=== PATIENT | male | born 1970 | race African-American/Black ===

== ENCOUNTER 2017-05-14 02:35 | Emergency (ER) | payer SELFPAY ==
[~2017-05-14] VITALS: Ht 190.5 cm; Wt 99.8 kg
[~2017-05-14 02:35] MED LIST: CLON-276 PO; KETO75CA PO; LISI-334 PO; MELO15TA23 PO; METO50TA10 PO; NAPR220C4 PO; TRAM50TA PO; tylenol arthritis
--- NOTE | 2017-05-14 02:44 | PHYS DOC ---
Past History Past Medical History: Arthritis, Hypertension, Sinusitis Additional Past Medical Histor: stopped BP meds a while ago Past Surgical History: No Surgical History Smoking: Cigarettes Alcohol Use: None Drug Use: None Social History Narrative: Recently incarcerated; living in [facility] ( [facility]) Adult General HPI HPI Patient is a 46 year old male who presents with fall. He resides at a half [place] house and was getting up to go to the bathroom. He can't remember if he tripped "or passed out but i fell forward and hit my face." He remembers falling. He knocked out his front tooth and can't close his jaw. He has a headache now (not prior) and mouth and jaw pain. No neck pain. No recent illness. No chest pain prior to event. Unknown last tetanus HE DOES NOT HAVE THE MISSING TOOTH WITH HIM Review of Systems Review of Systems Constitutional: Denies fever or chills Eyes: Denies change in visual acuity, redness, or eye pain HENT: Denies nasal congestion or sore throat; oral trauma tonight. Respiratory: Denies cough or shortness of breath Cardiovascular: No chest pain or palpitations GI: Denies abdominal pain, nausea, vomiting, bloody stools or diarrhea : Denies dysuria or hematuria Musculoskeletal: Denies back pain or joint pain Integument: Denies rash or skin lesions Neurologic: headache after fall, No focal weakness or sensory changes Allergies Allergies Allergies Coded Allergies Type Severity Reaction Last Updated Verified No Known Drug Allergies 03/19/16 No Physical Exam Physical Exam Constitutional: Well developed, well nourished, no acute distress, non-toxic appearance. HENT: Normocephalic, atraumatic, TM clear bilaterally; bilateral external ears normal, oropharynx moist, no oral exudates, nose normal. Oral lacerations to inner lower lip. Upper dental trauma with missing incisor (#8) and loosening and chip of #9. Malocclusion of jaw. Eyes: PERRLA, EOMI, conjunctiva normal, no discharge. Neck: Normal range of motion, no tenderness, supple, no stridor. Cardiovascular:Heart rate regular rhythm, no murmur Lungs & Thorax: Bilateral breath sounds clear to auscultation Abdomen: Bowel sounds normal, soft, no tenderness, no masses, no pulsatile masses. Skin: Warm, dry, no erythema, no rash. Back: No tenderness, no CVA tenderness. Extremities: No tenderness, no cyanosis, no clubbing, ROM intact, no edema. Neurologic: Alert and oriented X 3, normal motor function, normal sensory function, no focal deficits noted. Psychologic: Affect normal, judgement normal, mood normal. Current Patient Data Vital Signs Vital Signs Date Time Temp Pulse Resp B/P (MAP) Pulse Ox O2 Delivery O2 Flow Rate FiO2 05/14/17 02:45 97.4 73 20 98 Room Air 0400 am: BP 142/77, P 89, sat 96% RA Lab Results Laboratory Tests Test 05/14/17 03:10 White Blood Count 7.0 x10^3/uL Red Blood Count 4.99 x10^6/uL Hemoglobin 15.1 g/dL Hematocrit 45.0 % Mean Corpuscular Volume 90 fL Mean Corpuscular Hemoglobin 30 pg Mean Corpuscular Hemoglobin Concent 34 g/dL Red Cell Distribution Width 14.3 % Platelet Count 234 x10^3/uL Neutrophils (%) (Auto) 59 % Lymphocytes (%) (Auto) 30 % Monocytes (%) (Auto) 11 % Eosinophils (%) (Auto) 1 % Basophils (%) (Auto) 1 % Neutrophils # (Auto) 4.1 x10^3uL Lymphocytes # (Auto) 2.1 x10^3/uL Monocytes # (Auto) 0.7 x10^3/uL Eosinophils # (Auto) 0.0 x10^3/uL Basophils # (Auto) 0.0 x10^3/uL Prothrombin Time 11.8 SEC Prothromb Time International Ratio 1.2 Activated Partial Thromboplast Time 22 SEC Sodium Level 141 mmol/L Potassium Level 3.8 mmol/L Chloride Level 103 mmol/L Carbon Dioxide Level 28 mmol/L Anion Gap 10 Blood Urea Nitrogen 9 mg/dL Creatinine 1.8 mg/dL Estimated GFR (Cockcroft-Gault) 49.8 BUN/Creatinine Ratio 5 Glucose Level 142 mg/dL Calcium Level 8.9 mg/dL Total Bilirubin 0.7 mg/dL Aspartate Amino Transf (AST/SGOT) 32 U/L Alanine Aminotransferase (ALT/SGPT) 33 U/L Alkaline Phosphatase 77 U/L Total Protein 7.7 g/dL Albumin 4.1 g/dL Albumin/Globulin Ratio 1.1 Ethyl Alcohol Level < 10 mg/dL Current Medications Medications (Trade) Dose Ordered Sig/Cj Route PRN Reason Start Time Stop Time Status Last Admin Dose Admin Fentanyl Citrate (Fentanyl 2ml Vial) 25 mcg PRN Q15MIN PRN IV PAIN GREATER THAN 3/10 05/14/17 03:00 05/15/17 02:59 Sodium Chloride 1,000 ml @ 1,000 mls/hr Q1H IV 05/14/17 03:30 05/14/17 04:29 05/14/17 03:26 Ondansetron HCl (Zofran) 4 mg 1X ONCE IV 05/14/17 03:30 05/14/17 03:31 DC 05/14/17 03:26 Cefazolin Sodium 1 gm/Sodium Chloride 50 ml @ 100 mls/hr 1X ONCE IV 05/14/17 03:30 05/14/17 03:59 05/14/17 03:26 Sodium Chloride 50 ml @ As Directed STK-MED ONCE .ROUTE 05/14/17 03:21 05/14/17 03:22 DC Cefazolin Sodium (Ancef) 1 gm STK-MED ONCE .ROUTE 05/14/17 03:22 05/14/17 03:23 DC EKG EKG EKG by my interpretation. Normal sinus rhythm, rate 72. Non specific ST changes with J point elevation (consistent with age). No STEMI. Radiology/Procedures Radiology/[place] [address] IMAGING REPORT Signed PATIENT: ROBERT ODEN ACCOUNT: [id number] : 1970 LOCATION: ER AGE: 46 SEX: M EXAM STATUS: PRE ER ORD. PHYSICIAN: DOC JANSEN MD REASON: fell; facial pain PROCEDURE: CT HEAD AND CERVICAL SPINE WO PQRS Compliance Statement: One or more of the following individualized dose reduction techniques were utilized for this examination: 1. Automated exposure control 2. Adjustment of the mA and/or kV according to patient size 3. Use of iterative reconstruction technique CT HEAD, MAXILLOFACIAL, AND CERVICAL SPINE WITHOUT CONTRAST History: [id number] Injury from fall tonight, headache, facial abrasions, hit mouth and loss/chipped teeth, neck pain. Comparison: CT head without contrast, March 28, 2016. Procedure: Axial images are obtained of the head from the skull base through the vertex without IV contrast. Noncontrast helical CT of the cervical spine was performed. Axial, sagittal, and coronal reconstructions were obtained. Helical CT imaging of the facial bones is performed without IV contrast. Findings: The ventricles and sulci are normal for the patient's age. No mass-effect, midline shift, hemorrhage or obvious acute infarction is identified. Basilar cisterns are patent. Bone windows demonstrate no significant calvarial abnormality. There is acute traumatic nondisplaced fracture of the right mandible just right of midline, parasymphyseal. There is acute traumatic mildly comminuted fracture of the left mandibular condyle, sagittal image 15. Normal TMJ articulation. Right mandibular condyle is intact. The visualized paranasal sinuses are clear. Mastoid air cells are well aerated. There is no evidence of acute fracture or acute malalignment of the cervical spine. There is disc space narrowing and degenerative endplate spurring of C3/C4. There is posterior disc osteophyte complex but without significant central canal stenosis. Facet joints are intact. Visualized soft tissues of the neck demonstrate no significant abnormalities. The visualized lung apices are clear. Biapical paraseptal emphysema. IMPRESSION: 1. No acute intracranial abnormality. 2. No acute fracture of the cervical spine. 3. Acute traumatic fracture of the right para symphyseal mandible and mildly comminuted acute traumatic fracture of the left mandibular condyle. Electronically signed by: Young Jefferson MD (05/14/2017 3:30 AM) [facility] DICTATED AND SIGNED BY: YOUNG JEFFERSON MD DATE: 05/14/17321 Course & Med Decision Making Course & Med Decision Making Pertinent Labs and Imaging studies reviewed. (See chart for details) Evaluated patient upon arrival. He has obvious facial trauma/dental trauma. Concerned about mandible fracture. Tdap dosed and Ancef IV. CT ordered. Lab and EKG ordered as patient unclear if he "passed out" although his history relates that he fell. 0315 AM: Back from CT (awaiting results). EKG done. 0345 AM: CT results back with findings of mandibular fracture. Patient is open and needs admission. Will require transfer for higher level of care. 0400 AM: wounds repaired. [facility] contacted 0410 AM: Dr Mauricio accepted patient. Patient handling airway but requires frequent suctioning of secretions (patient is able to handle that on his own with suction). CT scans uploaded to cloud. Dragon Disclaimer Dragon Disclaimer This chart was dictated in whole or in part using Voice Recognition software in a busy, high-work load, and often noisy Emergency Department environment. It may contain unintended and wholly unrecognized errors or omissions. Laceration/Wound Repair Laceration/Wound Repair : Wound Location: face, mouth Wound's Depth, Shape: linear Wound Length (cm): 3 Wound Explored: clean Irrigated w/ Saline (ccs): 25 Betadine Prep?: Yes Anesthesia: Lidocaine w/ Epi Wound Repaired With: sutures Suture Size/Type: 4:0, proline Number of Sutures: 3 Progress Lower lip: inner lower lip mucosa with 2.0 cm laceration. Cleansed and anesthesized with 1% lido with epi. Repaired with 3-0 chromic; 3 sutures placed. No foreign body noted. Departure Departure: Impression: Primary Impression: Fall Additional Impressions: Mandible open fracture Tooth avulsion Disposition: 05 XFER OTHER ([facility]) Condition: GOOD Referrals: YAKOV DUNN (PCP) Problem Qualifiers DOC JANSEN MD May 14, 2017 02:44
[2017-05-14] MEDS ORDERED: IV NORMAL SALINE 50ML 50 ML ONE (03:21)
[2017-05-14] MEDS ORDERED: ceFAZolin SODIUM 1 GM VIAL ONE (03:22)
[2017-05-14] MEDS ORDERED: ONDANSETRON PF 4 MG/2 ML VIAL. IV ONE (03:30)
[2017-05-14] MEDS ORDERED: IV NORMAL SALINE 1,000ML 1,000 ML IV SCH (03:30)
--- NOTE | 2017-05-14 03:31 | EKG ---
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
[2017-05-14 03:32] LABS: BASO % 1 % (0-3); EOS % 1 % (0-3); HEMOGLOBIN 15.1 g/dL (13.0-17.5); LYMPH # 2.1 x10^3/uL (1.0-4.8); LYMPH % 30 % (24-48); MEAN CORPUSCULAR HEMOGLOBIN 30 pg (25-35); MEAN CORPUSCULAR HGB CONC 34 g/dL (31-37); MEAN CORPUSCULAR VOLUME 90 fL (79-100); MONO # 0.7 x10^3/uL (0.0-1.1); MONO % 11 % (0-9); NEUT # 4.1 x10^3uL (1.8-7.7); NEUT % 59 % (31-73); PLATELET COUNT 234 x10^3/uL (140-400); RED BLOOD COUNT 4.99 x10^6/uL (4.30-5.70); RED CELL DISTRIBUTION WIDTH 14.3 % (11.5-14.5)
--- NOTE | 2017-05-14 03:34 | RAD ---
RS Compliance Statement: One or more of the following individualized dose reduction techniques were utilized for this examination: 1. Automated exposure control 2. Adjustment of the mA and/or kV according to patient size 3. Use of iterative reconstruction technique CT HEAD, MAXILLOFACIAL, AND CERVICAL SPINE WITHOUT CONTRAST History: [id number] Injury from fall tonight, headache, facial abrasions, hit mouth and loss/chipped teeth, neck pain. Comparison: CT head without contrast, March 28, 2016. Procedure: Axial images are obtained of the head from the skull base through the vertex without IV contrast. Noncontrast helical CT of the cervical spine was performed. Axial, sagittal, and coronal reconstructions were obtained. Helical CT imaging of the facial bones is performed without IV contrast. Findings: The ventricles and sulci are normal for the patient's age. No mass-effect, midline shift, hemorrhage or obvious acute infarction is identified. Basilar cisterns are patent. Bone windows demonstrate no significant calvarial abnormality. There is acute traumatic nondisplaced fracture of the right mandible just right of midline, parasymphyseal. There is acute traumatic mildly comminuted fracture of the left mandibular condyle, sagittal image 15. Normal TMJ articulation. Right mandibular condyle is intact. The visualized paranasal sinuses are clear. Mastoid air cells are well aerated. There is no evidence of acute fracture or acute malalignment of the cervical spine. There is disc space narrowing and degenerative endplate spurring of C3/C4. There is posterior disc osteophyte complex but without significant central canal stenosis. Facet joints are intact. Visualized soft tissues of the neck demonstrate no significant abnormalities. The visualized lung apices are clear. Biapical paraseptal emphysema. IMPRESSION: 1. No acute intracranial abnormality. 2. No acute fracture of the cervical spine. 3. Acute traumatic fracture of the right para symphyseal mandible and mildly comminuted acute traumatic fracture of the left mandibular condyle. Electronically signed by: Young Jefferson MD (05/14/2017 3:30 AM) [facility]
[2017-05-14 03:41] LABS: ALBUMIN 4.1 g/dL (3.4-5.0); ALBUMIN/GLOBULIN RATIO 1.1 (1.0-1.7); CALCIUM 8.9 mg/dL (8.5-10.1); CREATININE 1.8 mg/dL (0.7-1.3); GFR 49.8; POTASSIUM 3.8 mmol/L (3.5-5.1); TOTAL BILIRUBIN 0.7 mg/dL (0.2-1.0); TOTAL PROTEIN 7.7 g/dL (6.4-8.2)
[2017-05-14] MEDS: fentaNYL PF 100 MCG/2 ML VIAL IV PRN ×2 (04:37→05:30)
[2017-05-14] MEDS ORDERED: DIPHTH,PERTUSS(ACELL),TET TOX 0.5 ML DISP.SYRIN. VAX IM ONE (05:00)
[2017-05-14 05:02] VITALS: BP 142/94
== END 2017-05-14 05:37 | disposition short-term general hospital (02) ==
LOC: ER 02:35
DX: S02.609A Fracture of mandible, unspecified, initial encounter for closed fracture (principal); S03.2XXA Dislocation of tooth, initial encounter; R51 Headache; I10 Essential (primary) hypertension; F17.210 Nicotine dependence, cigarettes, uncomplicated; M19.90 Unspecified osteoarthritis, unspecified site; W18.09XA Striking against other object with subsequent fall, initial encounter; Y93.89 Activity, other specified; Y99.8 Other external cause status; Y92.091 Bathroom in other non-institutional residence as the place of occurrence of the external cause
CPT/HCPCS: 12013; 36415; 70450; 70486; 72125; 80053; 85027; 85610; 85730; 90471; 90715; 93005; 96365; 96375; 96376; 99285; G0480; J0690; J2405; J3010; J7030